=== PATIENT | female | born 1975 | race Caucasian/White ===

== ENCOUNTER → 2024-08-17 09:34 | Outpatient (REF) | payer BC, SELFPAY | LOC: HWWDC 09:34 | PROVIDERS: ATTENDING PHYSICIAN Nurse Practitioner Family; FAMILY PHYSICIAN Family Medicine Geriatric Medicine | DX: Z12.31 Encounter for screening mammogram for malignant neoplasm of breast (principal) | CPT/HCPCS: 77063; 77067 ==

== ENCOUNTER → 2025-01-11 13:23 | Outpatient (REF) | payer BC, SELFPAY | LOC: HWRAD 13:23 | PROVIDERS: ATTENDING PHYSICIAN Obstetrics & Gynecology; FAMILY PHYSICIAN Family Medicine Geriatric Medicine | DX: D25.9 Leiomyoma of uterus, unspecified (principal) | CPT/HCPCS: 76830; 76856 ==